=== PATIENT | female | born 1965 | race Caucasian/White ===

== ENCOUNTER 2020-09-14 21:12 | Emergency (ER) | payer BC ==
[~2020-09-14] VITALS: Ht 167.6 cm; Wt 115.0 kg
[2020-09-14 23:05] LABS: HEMATOCRIT 44.2 % (37.0-47.0); HEMOGLOBIN 14.7 g/dl (12.0-16.0); IMMATURE GRANULOCYTES 0.5 % (0.0-5.0); MEAN CELL VOLUME 88.4 fL CALC (80.0-100.0); MEAN CORPUSCULAR HGB 29.4 pG CALC (26.0-32.0); MEAN CORPUSCULAR HGB CONC 33.3 g/dL CAL (32.0-36.0); NEUT# 2.46 thou/uL (2.00-7.15); RED CELL DISTRI WIDTH 12.8 % (11.5-15.5)
[2020-09-14 23:17] LABS: ALBUMIN 4.3 g/dL (3.2-5.0); ALKALINE PHOSPHATASE 85 u/l (38-126); ANION GAP 14 (6-22 (CALC)); BILIRUBIN, TOTAL 0.7 mg/dL (0.0-1.4); BUN 12 mg/dL (7-17); BUN/CREATININE RATIO 20 (12-20 (CALC)); CARBON DIOXIDE 25 mmol/l (22-30); CHLORIDE 103 mmol/l (95-108); CREATININE 0.6 mg/dL (0.5-1.0); GFR > 60 ML/MIN (>=60 (CALC)); GFR FOR AFR.AMER. > 60 ML/MIN (>=60 (CALC)); POTASSIUM 3.9 mmol/l (3.5-5.1); SGOT/AST 64 u/l (14-36); SODIUM 139 mmol/l (137-146); TOTAL PROTEIN 7.3 g/dL (6.3-8.2)
[2020-09-15] MEDS ORDERED: ROBITUSSIN AC10 ML PO (01:12)
[2020-09-15 01:20] VITALS: BP 138/59
== END 2020-09-15 01:20 | disposition home or self-care (01) | DRG 179 ==
LOC: ED 21:12
PROVIDERS: Family Medicine
DX: U07.1 COVID-19 (principal); G47.30 Sleep apnea, unspecified